=== PATIENT | male | born 1980 | race Caucasian/White ===

== ENCOUNTER 2020-08-15 01:55 | Emergency (ER) | payer OTHER, SELFPAY ==
--- NOTE | ~2020-08-15 | CT_ITS ---
EXAMINATION: CT abdomen pelvis wo con DATE: 08/15/2020 03:06 INDICATION: Left flank pain. TECHNIQUE: Computed tomography (CT) of the abdomen and pelvis was performed without intravenous contr ast. Automated exposure control and iterative reconstruction technique were employed. The dose-length product was 314.88 mGy-cm. COMPARISON: None. FINDINGS: The visualized portions of the lung bases demonstrate mild atelectasis. No pleural effusion . The heart size is normal. No pericardial effusion. There is diffuse hepatic steatosis. The gallblad breanne, spleen, pancreas, adrenal glands, and kidneys are normal. There is no urolithiasis. There is mil d fat stranding in the small bowel mesentery. There are no dilated loops of bowel. The appendix is no rmal. There are no pathologically enlarged lymph nodes. There is no free intraperitoneal fluid. There is mild thoracolumbar spondylosis. IMPRESSION: 1. Diffuse hepatic steatosis. 2. Mild fat stranding in the small bowel mesentery, likely edema or inflammation (mesenteric pannicul itis). Reviewed, dictated and finalized at location A. IMPRESSION: 1. Diffuse hepatic steatosis. 2. Mild fat stranding in the small bowel mesentery, likely edema or inflammatio n (mesenteric panniculitis).
[2020-08-15 02:00] VITALS: BP 139/80; PULSE 79; RESP 18; TEMP 36.5; O2SAT 99
--- NOTE | 2020-08-15 02:18 | ED.ABDPAIN ---
HPI - Abdominal Pain General Chief Complaint: Abdominal Pain Stated Complaint: left flank pain Time Seen by Provider: 08/15/20 02:18 Source: patient Mode of arrival: ambulatory Limitations: no limitations History of Present Illness HPI narrative: Patient is a 40-year-old previously healthy male who presents for evaluation of left flank pain. Patient reports he has had intermittent, mild flank pain throughout the day today, worse with movement initially patient thought this was more musculoskeletal. Patient states he went to bed this evening and then promptly awakened with severe, sharp left flank pain. Patient states pain is now not reproducible with movement. No radiation of the pain into the lower groin, no testicular pain or urinary symptoms. No hematuria or difficulty with urination. Patient denies fever, chills, nausea or vomiting. He denies abdominal distention or central abdominal pain. No rashes. Related Data Allergies Allergy/AdvReac Type Severity Reaction Status Date / Time No Known Allergies Allergy Verified 08/15/20 02:35 Review of Systems Review of Systems: Narrative: CONSTITUTIONAL: Denies fever, chills, or sweats. ENT: Denies rhinorrhea, congestion, sore throat, or otalgia. CARDIOVASCULAR: Denies chest pain, palpitations, or edema. RESPIRATORY: Denies cough or dyspnea. GASTROINTESTINAL: Reports left-sided middle abdominal pain, denies nausea or vomiting GENITOURINARY: Denies dysuria or hematuria. SKIN: Denies rash or itching. MUSCULOSKELETAL: Reports left flank pain, denies other joint pain, or myalgia. NEUROLOGIC: Denies headache, numbness, or weakness. [facility] Past Medical History Medical History (Updated 08/15/20 @ 04:33 by Deborah Mar MD) No pertinent past medical history Surgical History Surgical History (Updated 08/15/20 @ 02:33 by Deborah Mar MD) No pertinent past surgical history Social History Social History (Updated 08/15/20 @ 02:33 by Deborah Mar MD) Smoking status: Never smoker Alcohol use details: Social use Substance use: never Gender identity (if verbalized by the patient): Male Exam Narrative: Exam Narrative: GENERAL: Awake, alert, conversant HEAD: Normocephalic, atraumatic. EYES: PERRLA and EOMI. ENT: Nares clear, no rhinorrhea or epistaxis. Mucous membranes moist. NECK: Supple. CHEST: No respiratory distress, breathing even and non labored HEART: Regular rate, sinus rhythm ABDOMEN:Non distended, non tender, no reproducible flank tenderness, no abdominal tenderness, no guarding, nonrigid EXTREMITIES: Normal range of motion. No edema. SKIN: Warm, dry, no rash. NEURO:No focal deficits. Alert and oriented x3 Course Vital Signs Vital signs: Vital Signs Temperature 36.5 C 08/15/20 02:00 Pulse Rate 79 08/15/20 02:00 Respiratory Rate 18 08/15/20 02:00 Blood Pressure 139/80 08/15/20 02:00 Pulse Oximetry 99 08/15/20 02:00 Temperature 36.5 C 08/15/20 02:00 Pulse Rate 79 08/15/20 03:46 Respiratory Rate 16 08/15/20 03:46 Blood Pressure 112/71 08/15/20 03:46 Pulse Oximetry 100 08/15/20 03:46 MDM - Abdominal Pain MDM Narrative Medical decision making narrative: Patient presenting for evaluation of left-sided abdominal pain and left flank pain. Patient's abdomen is soft without significant pain or signs of surgical abdomen on serial exams. Lab and imaging evaluations are reviewed and patient is felt to be a reasonable candidate for outpatient management. Patient with signs of possible mesenteric-itis, no other acute intra-abdominal pathology. No nephrolithiasis. Shared decision-making occurred with patient, I explained that I cannot evaluate aortic pathology on a CT scan without contrast, but given symptoms, stable vital signs, no ripping or tearing sensation to the flank, and pain resolved at the time of assessment, I doubt any vascular pathology. Patient is comfortable with discharge home. Declines additional
--- NOTE | 2020-08-15 02:33 | PC.NURSE ---
20g IV placed in LAC at this time, blood and urine sent to lab. this rn called lab due to [employer] not letting me collect urine in chart. this rn was told to order UA again, cancel the previous order, and try to collect again. urine sent down with jigged label, lab aware.
[2020-08-15 02:37] LABS: Basophils Absolute Auto 0.1 K/mm3 (0.0-0.1); Basophils Percent Auto 0.8 % (0.2-1.2); Eosinophils Absolute Auto 0.1 K/mm3 (0-0.3); Eosinophils Percent Auto 1.3 % (0-4.4); Hematocrit 46.7 % (42.0-52.0); Hemoglobin 16.1 g/dL (14.0-18.0); Immature Granulocyte Absolute 0.02 K/mm3 (0.00-0.031); Immature Granulocyte Percent A 0.3 % (0-0.5); Lymphocytes Absolute Auto 2.76 K/mm3 (0.9-3.2); Mean Corpuscular HGB Conc 34.5 g/dl (32-36); Mean Corpuscular Hemoglobin 31.3 pg (26-34); Mean Corpuscular Volume 90.9 fl (80-100); Mean Platelet Volume 9.9 fl (7.4-10.4); Monocytes Absolute Auto 0.7 K/mm3 (0.1-0.6); Monocytes Percent Auto 9.8 % (2.6-8.5); Neutrophils Absolute Auto 3.8 K/mm3 (1.3-6.7); Neutrophils Percent Auto 50.8 % (45.5-73.1); Platelet Count Result 252 k/mm3 (150-375); Red Blood Count 5.14 M/mm3 (4.6-6.20); Red Cell Distribution Width 12.4 % (11.5-14.5); White Blood Count 7.5 K/mm3 (4.5-10.0)
[2020-08-15 02:43] LABS: Add Urine Microscopic? NO; Appearance Urine Clear (Clear); Bilirubin Urine Negative (Negative); Blood Urine Negative (Negative); Color Urine Yellow (Yellow); Glucose Urine UA Negative (Negative); Ketones Urine Negative (Negative); Leukocyte Esterase Ur Negative LEU/UL (Negative); Nitrate Urine Negative (Negative); Protein Urine Negative (Negative); Specific Grav Ur 1.017 (1.001-1.035); Urobilinogen Urine Negative mg/dL (<2.0)
[2020-08-15] MEDS: MORPHINE SULFATE (*CRX) 4 MG/ML INJ IV PUSH (02:45)
[2020-08-15] MEDS: ONDANSETRON INJ 4 MG/2 ML VIAL IV PUSH (02:45)
--- NOTE | 2020-08-15 02:45 | PC.NURSE ---
0245 1000mg ofirmev and 1L NS started in 20g in LAC, MAR not letting this RN chart IV therefore not able to chart meds in MAR.
[2020-08-15 02:49] VITALS: BP 137/69; PULSE 75; RESP 18; O2SAT 97
[2020-08-15 02:54] LABS: Anion Gap 11 mmol/L (8-16); Blood Urea Nitrogen 16 mg/dL (9-20); Carbon Dioxide 25 mmol/L (22-30); Chloride 104 mmol/L (98-107); Estimated Glomerular Filt Rate > 60; Glucose 121 mg/dL (75-110); Sodium 140 mmol/L (137-145)
--- NOTE | 2020-08-15 03:00 | PC.NURSE ---
ofirmev fully infused at this time.
[2020-08-15 03:46] VITALS: BP 112/71; PULSE 79; RESP 16; O2SAT 100
[2020-08-15 05:00] VITALS: BP 132/83; PULSE 66; RESP 16; O2SAT 97
== END 2020-08-15 05:01 | disposition home or self-care (01) ==
PROVIDERS: Emergency Provider Emergency Medicine; PCP Internal Medicine
DX: R10.9 Unspecified abdominal pain (principal)
CPT/HCPCS: 36415; 74176; 80048; 81003; 85025; 96374; 96375; 99284; J2270; J2405

== ENCOUNTER 2020-12-31 15:03 | Outpatient (CLI) | payer OTHER, SELFPAY | END 2020-12-31 15:04 | disposition home or self-care (01) | LOC: ANHCOVIDVC 15:03 | PROVIDERS: PCP Internal Medicine | DX: Z23 Encounter for immunization (principal) | CPT/HCPCS: 0001A; 91300 ==

== ENCOUNTER 2021-01-21 13:57 | Outpatient (CLI) | payer OTHER, SELFPAY | END 2021-01-21 13:58 | disposition home or self-care (01) | LOC: ANHCOVIDVC 13:57 | PROVIDERS: PCP Internal Medicine | DX: Z23 Encounter for immunization (principal) | CPT/HCPCS: 0002A; 91300 ==

== ENCOUNTER → 2021-03-22 11:51 | Outpatient (CLI) | payer OTHER, SELFPAY ==
--- NOTE | ~2021-03-22 | XR_ITS ---
XR hand RT min 3V 03/22/2021 11:59 INDICATION: Right hand pain PROCEDURE: 3 views right hand COMPARISON: No prior studies for comparison. FINDINGS: Fracture, dislocation or subluxation is not identified. The soft tissues appear within norm al limits. No foreign bodies are identified. IMPRESSION: 1: NO ACUTE BONE OR JOINT ABNORMALITY IDENTIFIED. Reviewed, dictated and finalized at location A.
== END ==
PROVIDERS: PCP Internal Medicine; Visit Provider Nurse Practitioner
DX: M79.641 Pain in right hand (principal)
CPT/HCPCS: 73130

== ENCOUNTER 2024-12-31 15:28 | Outpatient (RCR) | payer OTHER, SELFPAY ==
--- NOTE | 2024-12-31 16:21 | PTOPEVAL1 ---
Assessment and note entered by Valencia Sampson, PT, DPT Evaluation Information Assessment Status Evaluation Diagnosis neck pain ICD-10 Condition Codes (PT) Cervicalgia M54.2 Subjective Information Pt reports a couple of months ago he had a pinched nerve in his neck. He initially was having neck pain in September. He states he is starting to get some radicular pain down his L arm, into his fingers. He states radicular symptoms have improved in the last couple of weeks. States sleeping makes it worse, he is unable to sleep on his left side d/t this. States the intensity of his tingling is 5/10. He can make his symptoms decrease with a position change. Pts job requires about 50% sitting, 50% lifting and carrying. Reported Pain Level Pain Score 0: Self Report Assessment PT Clinical Summary Pt presents to therapy today for his initial evaluation with a diagnosis of neck pain. Today he demonstrates active cervical and shoulder ROM that is WNL and pain free, he also demonstrates good UE strength debo. Symptoms are only reproduced with cervical distraction and with seated chin tucks. Educated pt on neural mobilizations. Pt was issued and HEP and plans to do this for a month, then will follow up if needed. Plan of Care Interventions Electrical Stimulation,Hot Pack/Cold Pack,Manual Therapy,Neuro Re-education,Patient/Caregiver Education,Therapeutic Activities,Therapeutic Exercise PT Services Indicated Yes Treatment Frequency and follow up in 1 month Duration These treatments will address the objective and functional deficits as defined above. The patient will be advanced safely and appropriately in order for the patient to progress towards his/her prior level of function. Additional exercises will be introduced and as well as a comprehensive home exercise program upon discharge, if needed, ?to ensure carryover of functional gains achieved in the clinic. This treatment plan has been reviewed and agreement upon by the patient.
--- NOTE | 2025-02-03 08:41 | PTOPDC ---
Assessment and note entered by Valencia Sampson, PT, DPT Evaluation Information Assessment Status Discharge - Pt Not Present Diagnosis neck pain ICD-10 Condition Codes (PT) Cervicalgia M54.2 Subjective Information Call and spoke with patient, he states he is doing really well, not having any numbness and is performing his HEP daily. Does not need any additional therapy. Assessment PT Clinical Summary Pt was evaluated on 12/31/24 and has been completing an HEP for the last month. Will d/c at this time as pt is at his baseline.
== END 2025-02-03 09:41 | disposition home or self-care (01) ==
LOC: ANHGOSHPT 15:28
PROVIDERS: PCP Internal Medicine; Visit Provider Nurse Practitioner
DX: M54.2 Cervicalgia (principal)
CPT/HCPCS: 97110; 97161

== ENCOUNTER 2025-03-02 18:55 | Emergency (ER) | payer OTHER, SELFPAY ==
[2025-03-02 19:02] VITALS: BP 127/94; PULSE 80; RESP 18; TEMP 36.7; O2SAT 98
--- NOTE | 2025-03-02 20:53 | ED.URI ---
HPI - URI/Sore Throat General Chief Complaint: Upper Respiratory Infection Stated Complaint: Sinus Infection Symptoms Time Seen by Provider: 03/02/25 19:35 Source: patient and RN notes reviewed Mode of arrival: ambulatory Limitations: no limitations History of Present Illness HPI Narrative: 44-year-old male presents Express Care complain of upper respiratory symptoms for 6 days. Patient initially notice congestion and runny nose for the last 5 days. Patient today woke up with worsening sinus pressure and pain over his nasal bone. He denies any injury to his face. Patient denies any nasal discharge, cough, fever, sore throat, chest pain, or shortness of breath. Patient denies any significant past medical history. Patient denies any sneezing, watery eyes. Related Data Allergies Allergy/AdvReac Type Severity Reaction Status Date / Time No Known Allergies Allergy Verified 03/02/25 19:00 Review of Systems Review of Systems: CONSTITUTIONAL: Denies fever, chills, or sweats. EYES: Denies visual changes, redness, or discharge. ENT: Positive for rhinorrhea, sinus pressure, and congestion. Negative for sore throat, or otalgia. CARDIOVASCULAR: Denies chest pain, palpitations, or edema. RESPIRATORY: Denies cough or dyspnea. GASTROINTESTINAL: Denies abdominal pain, nausea, vomiting, or diarrhea. GENITOURINARY: Denies dysuria or hematuria. SKIN: Denies rash or itching. MUSCULOSKELETAL: Denies back pain, joint pain, or myalgia. NEUROLOGIC: Denies headache, numbness, or weakness. PSYCHIATRIC: Denies anxiety or depression. All other systems reviewed are negative, except as documented in HPI. [facility] Past Medical History Medical History No pertinent past medical history [place] (obstructive sleep apnea) Surgical History Surgical History No pertinent past surgical history Family History Family History Father Hypertension Patient's father is in good health Mother Patient's mother is in good health Other Diabetes mellitus Social History Social History Social History: caffeine- Tea Smoking status: Never smoker Alcohol intake: current Drinks per week: 15 Alcohol use details: weekends- All types Substance use: never Lack of Transportation: No Lack of Food: Never True Current Housing: I Have Housing Concerned About Future Housing: No Difficulty Paying Gas/Electric Bills: No Difficulty Paying for Meds: No Currently Unemployed: No Education: Bachelor's Degree Difficulty w/ Childcare or Family Care: No Gender identity (if verbalized by the patient): Male Comments At the time of my signature, I reviewed and agree with the nursing past medical, surgical, social, and family history. There is no relevant family history pertinent to the patient complaint. Exam Narrative: GENERAL: This is a well-nourished, well-developed adult, in no apparent distress. They are non ill-appearing, nontoxic appearing. HEAD: normocephalic, atraumatic. EYES: Sclera clear/white. Conjunctiva normal. Vision is grossly intact. Extraocular movements intact EARS: External ears normal, auditory canals clear and without drainage, TMs normal without perforation. Hearing grossly intact. NOSE: External nose normal with no obvious nasal discharge or swelling, nasal turbinates erythematous with rhinorrhea. Sinus tenderness to palpation to the frontal maxillary sinuses. Tenderness to palpation over the nasal bridge. THROAT: Mucous membranes moist, posterior pharynx clear, without erythema or swelling. Uvula midline. Postnasal drip present NECK: Neck supple, non-tender without lymphadenopathy, masses or thyromegaly. CARDIOVASCULAR: Regular rate and rhythm without murmurs, gallops, or rubs. RESPIRATORY: Clear to auscultation. Breath sounds equal bilaterally. No wheezes, rales, or rhonchi. SKIN: warm, Dry, intact with no suspicious lesions or rash, good texture and turgor. NEURO: awake, alert, and oriented to person, place and time. There were no obvious focal neurologic abnormalities. EXTREMITIES: No joint tenderness, effusion, or edema noted. BACK: Nontender without deformity. No CVA tenderness. Course Course Emergency Course: Portions of this record may have been created with voice recognition software Level of Care: Express Care Visit Vital Signs Vital signs: Vital Signs Temperature 98.0 F 03/02/25 19:02 Pulse Rate 80 03/02/25 19:02 Respiratory Rate 18 03/02/25 19:02 Blood Pressure 127/94 H 03/02/25 19:02 Pulse Oximetry 98 03/02/25 19:02 Oxygen Delivery Room Air 03/02/25 19:02 Temperature 98.0 F 03/02/25 19:02 Pulse Rate 80 03/02/25 19:02 Respiratory Rate 18 03/02/25 19:02 Blood Pressure 127/94 H 03/02/25 19:02 Pulse Oximetry 98 03/02/25 19:02 Oxygen Delivery Room Air 03/02/25 19:02 Reviewed MDM - URI/Sore Throat MDM Narrative Medical decision making narrative: Given patient's symptoms it is likely has developed a bacterial sinusitis. Will treat empirically with Augmentin. Discussed physical exam findings. Advised supportive measures and signs/symptoms to go to the ER. Pt is appropriate for outpt treatment and f/u. Differential Diagnosis Differential diagnosis: Likely sinusitis, pharyngitis and other (Allergies) Critical Care Time Critical Care Time Critical Care Time: No Discharge Plan Discharge Clinical Impression: Sinusitis Qualifiers: Sinusitis location: unspecified location Chronicity: acute Recurrence: non-recurrent Qualified Code(s): J01.90 - Acute sinusitis, unspecified Patient Disposition: Home Condition: Stable Instructions: Sinusitis (ED) Additional Instructions: Take the antibiotics as directed and complete the course even if you start to feel better. You may use a Neti pot saline rinse 3 times a day luke warm distilled water. Continue to take Tylenol or Motrin for pain. Use a humidifier or vaporizer at night. Drink plenty of water. 8-10 glasses per day. Use flonase 2 times per day for 5 days then as needed Take mucinex 2 times per day and be sure to take with 8oz of water. Follow up with Primary provider if not getting better. Please go to the ER he developed difficulty breathing, fevers, or any other concerns. Patient Language: Kenyan Prescriptions: New amoxicillin-pot clavulanate 875-125 mg tablet 1 tablet PO Q12H 7 Days Qty: 14 0RF No Action atorvastatin 10 mg tablet 10 mg PO QHS Qty: 90 3RF Follow-up/Referrals: PHYSICIAN,KILN CLEANER [Primary Care Provider] - Time of Disposition: 19:48
== END 2025-03-02 20:02 | disposition home or self-care (01) ==
DX: J01.90 Acute sinusitis, unspecified (principal)
CPT/HCPCS: 99213; G0463